=== PATIENT | female | born 1955 | race Caucasian/White ===

== ENCOUNTER 2017-08-13 17:50 | Emergency (ER) | payer OTHER ==
[~2017-08-13] VITALS: Ht 154.9 cm; Wt 60.5 kg
[2017-08-13 18:17] LABS: BASOPHIL (%) 0.6 % (0-1); EOSINOPHIL (%) 2.8 % (0-5); EOSINOPHIL COUNT 0.2 K/uL (0-0.3); HEMATOCRIT 37.8 % (36.0-46.0); IMMATURE GRANULOCYTE (%) 0.3 % (0.0-0.7); LYMPHOCYTE (%) 31.3 % (15-42); LYMPHOCYTE COUNT 2.1 K/uL (1.0-2.8); MCH 31.7 PG (29.0-34.0); MCHC 34.4 G/DL (30.0-36.0); MCV 92.2 FL (83-99); MONOCYTE (%) 6.9 % (3-12); MONOCYTE COUNT 0.5 K/uL (0-0.8); NEUTROPHIL (%) 58.1 % (45-76); NEUTROPHIL COUNT 3.9 K/uL (1.8-6.4); PLATELET COUNT 219 K/uL (156-360); RBC DIS.WIDTH-CV 11.9 % (11.8-14.6); WHITE BLOOD COUNT 6.7 K/uL (4.1-10.2)
[2017-08-13 18:28] LABS: ALBUMIN 4.3 g/dL (3.2-4.8); CHLORIDE 104 mEq/L (99-109); POTASSIUM 4.1 mEq/L (3.7-5.4); SODIUM 140 mEq/L (136-147)
[2017-08-13 18:30] LABS: GLUCOSE 132 mg/dL (70-99)
[2017-08-13 18:32] LABS: TOTAL BILIRUBIN 1.1 mg/dL (0.0-1.0)
[2017-08-13 18:34] LABS: ALKALINE PHOSPHATASE 89 IU/L (3-129); CREATININE 0.9 mg/dL (0.6-1.3); GFR ESTIMATE (CALCULATED) > 59 mL/min/
[2017-08-13 18:35] LABS: AST (GOT) 35 IU/L (2-34); UREA NITROGEN (BUN) 16 mg/dL (9-23)
[2017-08-13 18:36] LABS: DIRECT BILIRUBIN 0.3 mg/dL (0.0-0.3)
[2017-08-13 18:37] LABS: ALT (GPT) 27 IU/L (3-49)
[2017-08-13 19:00] VITALS: BP 125/64
== END 2017-08-13 18:54 | disposition home or self-care (01) ==
LOC: EME 17:50
PROVIDERS: Physician Assistant Medical
DX: Z77.21 Contact with and (suspected) exposure to potentially hazardous body fluids (principal); Z20.6 Contact with and (suspected) exposure to human immunodeficiency virus [HIV]; Y99.0 Civilian activity done for income or pay
CPT/HCPCS: 80048; 80076; 85025; 99281; 99283